=== PATIENT | female | born 1965 | race African-American/Black ===

== ENCOUNTER 2017-12-11 16:40 | Emergency (ER) | payer BC ==
[~2017-12-11] VITALS: Ht 170.2 cm; Wt 56.4 kg
[~2017-12-11 16:40] MED LIST: LISI10TA5; insulin humalog; insulin lantus
[2017-12-11 16:43] VITALS: BP 145/88
== END 2017-12-11 20:00 | disposition left against medical advice (07) ==
LOC: ER 17:30
DX: Z53.21 Procedure and treatment not carried out due to patient leaving prior to being seen by health care provider (principal)

== ENCOUNTER 2018-02-04 14:11 | Inpatient (IN) | payer BC ==
[~2018-02-04] VITALS: Ht 162.6 cm; Wt 64.4 kg
[2018-02-04] VITALS (18 sets, daily range): BP systolic 104–184; BP diastolic 39–159
[2018-02-04] MEDS ORDERED: ONDANSETRON HCL 4MG/2ML INJ IV STA (14:33)
[2018-02-04] MEDS ORDERED: SODIUM CHLORIDE 0.9% 1,000 ML IV ONE (14:33)
[2018-02-04] MEDS ORDERED: FAMOTIDINE 20MG/2ML VIAL IV STA (14:33)
[2018-02-04] MEDS ORDERED: KETOROLAC 30MG/ML VIAL IV STA (14:33)
[2018-02-04 16:02] LABS: BASOPHILS % 0.5 % (0.0-2.0); EOSINOPHILS % 0.1 % (0.0-5.0); HEMATOCRIT. 42.7 % (36.0-48.0); HEMOGLOBIN. 12.5 g/dL (12.0-16.0); LYMPHOCYTES % 9.1 % (20.0-50.0); MEAN CORPUSCULAR HEMOGLOBIN 23.4 pg (28.0-32.0); MEAN CORPUSCULAR VOLUME 79.8 fL (81.0-99.0); MEAN PLATELET VOLUME 8.7 fl (7.4-10.4); MONOCYTES % 1.2 % (2.0-8.0); NEUTROPHILS % 89.1 % (40.0-76.0); PLATELET 617 x1000/uL (130-400); RED BLOOD CELL COUNT 5.35 mill/uL (4.2-5.4); RED CELL DISTRIBUTION WIDTH 19.2 % (11.6-14.6)
[2018-02-04 16:04] LABS: CHLORIDE 96 mEq/L (98-107)
[2018-02-04] MEDS ORDERED: SODIUM CHLORIDE 0.9% 1,000 ML IV NR (16:40)
[2018-02-04] MEDS ORDERED: INSULIN REGULAR (DRIP) 100 UNITS in SODIUM CHLORIDE 0.9% 100 ML IV NR ×2 (16:45→18:00)
[2018-02-04 17:04] LABS: CLARITY URINE CLEAR (CLEAR); COLOR URINE YELLOW (YELLOW); KETONES URINE 4+ (NEGATIVE); LEUKOCYTE ESTERASE URINE NEGATIVE (NEGATIVE); NITRITE URINE NEGATIVE (NEGATIVE); OCCULT BLOOD URINE NEGATIVE (NEGATIVE); PROTEIN URINE NEGATIVE (NEGATIVE); SPECIFIC GRAVITY URINE 1.023 (1.005-1.030); UROBILINOGEN URINE 0.2 E.U./dL (0.2-1.0)
[2018-02-04 17:09] LABS: BG BASE EXCESS -20.3 mmol/L (-2.0-2.0); BG CARBOXYHEMOGLOBIN 0.8 % (0.5-1.5); BG DEOXYHEMOGLOBIN 2.5 % (0.0-5.0); BG HCO3 ACT 6.7 mmol/L (22.0-26.0); BG METHEMOGLOBIN 0.5 % (0.0-1.5); BG OXYGEN SATURATION 97.5 % (92.0-98.5); BG OXYHEMOGLOBIN 96.2 % (94.0-97.0); BG PCO2 19.8 mmHg (35.0-45.0); BG PH 7.147 (7.350-7.450); BG PO2 116.4 mmHg (75.0-100.0); BG SAMPLE SITE LEFT RADIAL; BG TOTAL HEMOGLOBIN 12.4 g/dL (12.0-18.0); BG VENT MODE ROOM AIR
[2018-02-04 17:24] LABS: PHOSPHORUS 6.2 mg/dL (2.5-4.9)
[2018-02-04 17:25] LABS: BETA HYDROXYBUTYRATE 7.4 mMol/L (0.0-0.3)
[2018-02-04] MEDS ORDERED: IPRATROPIUM/ALBUTEROL 0.5-3(2.5)MG/3ML NEB INH PRN (17:30)
[2018-02-04] MEDS ORDERED: LORAZEPAM 0.5MG TABLET PO PRN (17:30)
[2018-02-04] MEDS ORDERED: NA PHOS,M-B/NA PHOS,DI-BA ENEMA 118ML PR PRN (17:30)
[2018-02-04] MEDS ORDERED: NITROGLYCERIN 0.4MG TABLET SL SL PRN (17:30)
[2018-02-04] MEDS ORDERED: GUAIFENESIN 200MG/10ML SUGAR FREE UDC PO PRN (17:30)
[2018-02-04] MEDS ORDERED: ONDANSETRON HCL 4MG/2ML INJ IV PRN (17:30)
[2018-02-04] MEDS ORDERED: CLONIDINE 0.1MG TABLET PO PRN (17:30)
[2018-02-04] MEDS ORDERED: DEXTROSE 50% WATER 50ML SYRINGE IV PRN ×2 (17:30)
[2018-02-04] MEDS ORDERED: DOCUSATE SODIUM 100MG CAPSULE PO PRN (17:30)
[2018-02-04] MEDS ORDERED: ACETAMINOPHEN 325MG TABLET PO PRN (17:30)
[2018-02-04] MEDS ORDERED: MAGNESIUM/ALUMINUM HYDROXIDE/SIMETHICONE 30ML UDC PO PRN (17:30)
[2018-02-04] MEDS ORDERED: ZOLPIDEM TARTRATE 5MG TABLET PO PRN (17:30)
[2018-02-04 18:20] LABS: ETHANOL BLOOD < 10 mg/dL
[2018-02-04 18:23] LABS: LDL CHOLESTEROL 167 mg/dL (5-100)
[2018-02-04 18:24] LABS: HDL CHOLESTEROL 97 mg/dL (40-59)
[2018-02-04 18:50] LABS: *BARBITURATES SCREEN URINE NEGATIVE (NEGATIVE); *BENZODIAZEPINES SCREEN URINE NEGATIVE (NEGATIVE); *COCAINE SCREEN URINE NEGATIVE (NEGATIVE); METHADONE URINE SCREEN NEGATIVE (NEGATIVE)
[2018-02-04 18:51] LABS: *AMPHETAMINES SCREEN URINE NEGATIVE (NEGATIVE); CANNABINOID URINE SCREEN PRESUMTIVE POSITIVE (NEGATIVE); OPIATES URINE SCREEN NEGATIVE (NEGATIVE); PHENCYCLIDINE URINE SCREEN NEGATIVE (NEGATIVE)
[2018-02-04] MEDS: SODIUM POLYSTYRENE SULFONATE 15 G/60 ML BOT PO SCH ×2 (19:21→19:26)
[2018-02-04] MEDS: BLOOD SUGAR DIAGNOSTIC STRIP TEST SCH ×4 (19:41→23:03)
[2018-02-04] MEDS: ENOXAPARIN 40MG/0.4ML SYR SUBCUT SCH (20:16)
[2018-02-04] MEDS: LISINOPRIL 20MG TABLET PO SCH (20:17)
[2018-02-04] MEDS: METOPROLOL TARTRATE 25MG TABLET PO SCH (20:17)
[2018-02-04] MEDS: SODIUM CHLORIDE 0.9% 1,000 ML IV SCH (20:21)
[2018-02-04] MEDS ORDERED: INSULIN REGULAR (DRIP) 100 UNITS in SODIUM CHLORIDE 0.9% 100 ML IV SCH (21:00)
[2018-02-04 21:42] LABS: CHLORIDE 106 mEq/L (98-107)
[2018-02-04] MEDS ORDERED: AMLO2.5T45 MT (22:22)
[2018-02-04] MEDS: KETOROLAC 15MG/ML VIAL IV PRN (22:57)
[2018-02-05] VITALS (18 sets, daily range): BP systolic 100–144; BP diastolic 27–77
[2018-02-05] MEDS: BLOOD SUGAR DIAGNOSTIC STRIP TEST SCH ×12 (00:58→21:48)
[2018-02-05] MEDS: SODIUM CHLORIDE 0.9% 1,000 ML IV SCH (00:58)
[2018-02-05] MEDS: TRAMADOL 50MG TABLET PO PRN ×3 (02:15→13:59)
[2018-02-05] MEDS ORDERED: DEXT 5%/0.45% NACL 1000ML 1,000 ML IV SCH (04:00)
[2018-02-05] MEDS: KETOROLAC 15MG/ML VIAL IV PRN ×3 (04:39→23:00)
[2018-02-05 06:00] LABS: CHLORIDE 112 mEq/L (98-107)
[2018-02-05 06:13] LABS: PHOSPHORUS 2.4 mg/dL (2.5-4.9)
[2018-02-05] MEDS: PANTOPRAZOLE SODIUM 40 MG/VIAL IV SCH (08:01)
[2018-02-05] MEDS: METOPROLOL TARTRATE 25MG TABLET PO SCH ×2 (08:12→21:00)
[2018-02-05] MEDS: LISINOPRIL 20MG TABLET PO SCH ×2 (09:00→21:00)
[2018-02-05] MEDS ORDERED: DEXTROSE 50% WATER 50ML SYRINGE IV PRN (09:15)
[2018-02-05] MEDS: INSULIN GLARGINE UD 100 UNITS/ML SYR SUBCUT SCH (10:52)
[2018-02-05] MEDS ORDERED: POTASSIUM PHOS,M-BASIC-D-BASIC 10 MMOL in DEXT 5% WATER 246.6667 ML IV SCH (12:30)
[2018-02-05] MEDS: INSULIN LISPRO 100 UNITS/ML SUBCUT SCH ×5 (12:37→21:00)
[2018-02-05] MEDS: ENOXAPARIN 40MG/0.4ML SYR SUBCUT SCH (21:00)
[2018-02-06] VITALS: BP 116/58
[2018-02-06 04:00] VITALS: BP 118/52
[2018-02-06] MEDS: INSULIN LISPRO 100 UNITS/ML SUBCUT SCH ×4 (07:20→12:48)
[2018-02-06] MEDS: PANTOPRAZOLE SODIUM 40 MG/VIAL IV SCH (07:58)
[2018-02-06] MEDS: METOPROLOL TARTRATE 25MG TABLET PO SCH (07:59)
[2018-02-06] MEDS: LISINOPRIL 20MG TABLET PO SCH (07:59)
[2018-02-06 08:00] VITALS: BP 117/60
[2018-02-06] MEDS: KETOROLAC 15MG/ML VIAL IV PRN (08:00)
[2018-02-06] MEDS: BLOOD SUGAR DIAGNOSTIC STRIP TEST SCH ×2 (08:15→12:20)
[2018-02-06] MEDS: INSULIN GLARGINE UD 100 UNITS/ML SYR SUBCUT SCH (10:00)
[2018-02-06 11:38] VITALS: BP 135/74
[2018-02-06 12:00] VITALS: BP 135/74
== END 2018-02-06 12:50 | disposition home or self-care (01) | DRG 638 ==
LOC: ER 16:38 → CVICU 17:02 → EDBEDREQ 17:08 → EDBEDREQTM 17:08 → ENRESERV 17:18 → 6EST 02-05 15:21
PROVIDERS: ADMIT Internal Medicine; ATTEND Internal Medicine
DX: E11.10 Type 2 diabetes mellitus with ketoacidosis without coma (principal); E87.1 Hypo-osmolality and hyponatremia; E87.5 Hyperkalemia; I10 Essential (primary) hypertension; E83.39 Other disorders of phosphorus metabolism; Z79.4 Long term (current) use of insulin; Z79.899 Other long term (current) drug therapy; Z91.14 Patient's other noncompliance with medication regimen; M54.9 Dorsalgia, unspecified
CPT/HCPCS: 36415; 36600; 71045; 80048; 80061; 80305; 82010; 82375; 82805; 82962; 83036; 83735; 84100; 84484; 93005; 93970; 96361; 96374; 96375; 99285; C9113; G0482; J1650; J1815; J1885; J2405; J3490; J7030; J7050; J7060

== ENCOUNTER 2020-02-10 19:15 | Emergency (ER) | payer BC ==
[~2020-02-10] VITALS: Ht 170.2 cm; Wt 73.0 kg
[~2020-02-10 19:15] MED LIST changes: +AMLO2.5T45 MT
[2020-02-10] MEDS ORDERED: KETOROLAC 30MG/ML VIAL IM ONE (22:30)
[2020-02-10 22:47] VITALS: BP 187/96
== END 2020-02-11 00:05 | disposition home or self-care (01) ==
LOC: ER 19:15
DX: S80.11XA Contusion of right lower leg, initial encounter (principal); W01.0XXA Fall on same level from slipping, tripping and stumbling without subsequent striking against object, initial encounter; Y93.73 Activity, racquet and hand sports; Y92.312 Tennis court as the place of occurrence of the external cause
CPT/HCPCS: 73590; 96372; 99283; J1885